=== PATIENT | female | born 1980 | race Hispanic/Latino ===

== ENCOUNTER → 2017-06-12 | Day surgery (SDC) | payer OTHER ==
[~2017-06-12] VITALS: Ht 154.9 cm; Wt 72.6 kg
[2017-06-12 07:46] LABS: ABSOLUTE BASOPHIL COUNT 0 /CUMM (0.0-0.2); ABSOLUTE EOSINOPHIL COUNT 0.2 /CUMM (0.0-0.7); ABSOLUTE LYMPH COUNT 1.9 /CUMM (1.2-3.4); ABSOLUTE MONOCYTE COUNT 0.6 /CUMM (0.10-0.60); BASOPHIL % 0.4 % (0.0-2.0); GRANULOCYTE % 68.7 % (42.2-75.2); HEMATOCRIT 39.8 % (37-47); MEAN CORPUSCULAR HGB 27.6 PG (27.0-31.0); MEAN CORPUSCULAR HGB CONC 33.6 G/DL (33.0-37.0); MEAN CORPUSCULAR VOLUME 82.2 FL (81.0-99.0); MEAN PLATELET VOLUME 8.6 FL (7.4-10.4); PLATELET COUNT 362 /CUMM (130-400); RBC DISTRIBUTION WIDTH 13.7 % (11.5-14.5); RED BLOOD CELL CT 4.84 /CUMM (4.20-5.40); WHITE BLOOD CELL COUNT 8.8 /CUMM (4.8-10.8)
--- NOTE | 2017-06-18 09:30 | Operative Report ---
Operative/Inv Procedure Report Surgery Date: 06/12/17 Name of Procedure: Suction D&C Pre-Operative Diagnosis: Missed Post-Operative Diagnosis: Same Estimated Blood Loss: scant Surgeon/Senior [employer] Software Engineer: Isma Kay MD Anesthesia: moderate sedation Operative/Procedure Note Note: The patient was brought to the operating room placed on the OR table in the dorsal spine position. She was given adequate anesthesia and repositioned in modified dorsal lithotomy. She is prepped and draped in usual sterile fashion. A weighted speculum was inserted into the vagina with help of a Truxton retractor single-tooth tenaculum was attached to the anterior lip of the cervix. The cervix was injected with 1% lidocaine to have cc in each quadrant. The cervix was serially dilated to accommodate an 8 mm suction curette. This was placed to the fundus of the uterus and the suction was activated. A moderate amount of necrotic POC's was removed with small amounts of blood. A sharp curettage followed revealing no remaining tissue. One final pass of the suction curet again revealed no remaining tissue. At the end of the procedure the instruments removed patient was awakened and sent to recovery in good condition. All needle, sponge, and instrument counts were correct at the end of the procedure 2.
== END ==
LOC: STS 02:32
PROVIDERS: Obstetrics & Gynecology
DX: O02.1 Missed abortion (principal)
CPT/HCPCS: 36415; J2250